=== PATIENT | male | born 1960 | race Caucasian/White ===

== ENCOUNTER 2017-09-17 01:50 | Emergency (ER) | payer SELFPAY ==
[2017-09-17] MEDS ORDERED: Acetaminophen 500 MG Tab PO ONE (02:30)
--- NOTE | 2017-09-17 02:39 | EDM.PDOC ---
ED HPI GENERAL MEDICAL PROBLEM - General Chief Complaint: Lower Extremity Injury/Pain Stated Complaint: KNEE PAIN Time Seen by Provider: 09/17/17 02:20 Source of Information: Reports: Patient, RN History Limitations: Reports: No Limitations - History of Present Illness INITIAL COMMENTS - FREE TEXT/NARRATIVE: 57 yo male presents with anterior knee pain. States he pulled a metal wire out of his anterior L knee about 1430 h on 09/16/17. 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 His last tetanus was reportedly 7 yrs ago. Presents now at 0210h to make sure the knee is OK. He does not need a note for work. Would like something for pain. 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: Other (see below) (none) Bilateral Knee Pain Score (Numeric/FACES): 5 - Related Data Allergies Allergy/AdvReac Type Severity Reaction Status Date / Time No Known Allergies Allergy Verified 09/17/17 02:03 Home Meds: Home Meds Lisinopril [Prinivil] 10 mg PO DAILY 09/17/17 [History] Paliperidone [Invega] 9 mg PO DAILY 09/17/17 [History] Propranolol [Inderal] 10 mg PO DAILY 09/17/17 [History] Past Medical History Cardiovascular History: Reports: Hypertension Respiratory History: Reports: Asthma Musculoskeletal History: Reports: Fracture - Infectious Disease History Infectious Disease History: Reports: Chicken Pox - Past Surgical History HEENT Surgical History: Reports: Other (See Below) Other HEENT Surgeries/Procedures: left ear surgery Social & Family History - Tobacco Use Smoking Status *Q: Current Every Day Smoker Years of Tobacco use: 6 Packs/Tins Daily: 1 Used Tobacco, but Quit: Yes Month/Year Tobacco Last Used: nov Second Hand Smoke Exposure: No - Caffeine Use Caffeine Use: Reports: Coffee - Alcohol Use Days Per Week of Alcohol Use: 1 Number of Drinks Per Day: 2 Total Drinks Per Week: 2 - Recreational Drug Use Recreational Drug Use: No Review of Systems - Review of Systems Review Of Systems: See Below Musculoskeletal: Reports: Other (L anterior knee pain) Skin: Reports: Erythema (small area L anterior knee.) Neurological: Reports: No Symptoms ED EXAM, GENERAL - Physical Exam Exam: See Below Exam Limited By: No Limitations General Appearance: Alert, WD/WN, No Apparent Distress Extremities: Normal Inspection, Normal Range of Motion, Non-Tender, No Pedal Edema Neurological: Alert, CN II-XII Intact, Normal Gait, No Motor/Sensory Deficits Skin Exam: Warm, Dry, Intact, No Rash, Erythema (Very small, ~ 1/8 inch area of redness to the anterior L knee. No fluctuance. No increased warmth. ) Course - Vital Signs Last Recorded V/S: Last Vital Signs Temp 35 C L 09/17/17 02:13 Pulse 80 09/17/17 02:13 Resp 16 09/17/17 02:13 BP 137/74 09/17/17 02:13 Pulse Ox 99 09/17/17 02:13 - Orders/Labs/Meds Meds: Medications Discontinued Medications Generic Name Dose Route Start Last Admin Trade Name Amy PRN Reason Stop Dose Admin Acetaminophen 1,000 mg 09/17/17 02:30 Tylenol Extra Strength PO 09/17/17 02:31 ONETIME ONE Departure - Departure Time of Disposition: 02:40 Disposition: Home, Self-Care 01 Condition: Good Clinical Impression: Puncture wound of knee, left Qualifiers: Encounter type: initial encounter Qualified Code(s): S81.032A - Puncture wound without foreign body, left knee, initial encounter - Discharge Information Referrals: PCP,None [Primary Care Provider] - Forms: ED Department Discharge Additional Instructions: Keep your anterior knee clean with soap and water. Recheck in the clinic if redness worsens. Acetaminophen per package instructions for pain releif.
== END 2017-09-17 02:43 | disposition home or self-care (01) ==
LOC: JP.ED 01:50
DX: S81.032A Puncture wound without foreign body, left knee, initial encounter (principal); I10 Essential (primary) hypertension; F17.210 Nicotine dependence, cigarettes, uncomplicated; W26.8XXA Contact with other sharp object(s), not elsewhere classified, initial encounter
CPT/HCPCS: 99283; A9270

== ENCOUNTER 2022-05-02 08:38 | Emergency (ER) | payer SELFPAY ==
[2022-05-02 09:39] LABS: CORONAVIRUS COVID-19 NAA NEGATIVE (NEGATIVE)
== END 2022-05-02 10:20 | disposition home or self-care (01) ==
LOC: JP.ED 08:38
DX: J21.9 Acute bronchiolitis, unspecified (principal); I10 Essential (primary) hypertension; F17.210 Nicotine dependence, cigarettes, uncomplicated; Z20.822 Contact with and (suspected) exposure to COVID-19
CPT/HCPCS: 0241U; 99284

== ENCOUNTER 2022-05-06 21:07 | Emergency (ER) | payer SELFPAY | END 2022-05-06 22:33 | disposition home or self-care (01) | LOC: JP.ED 21:07 | DX: J40 Bronchitis, not specified as acute or chronic (principal); I10 Essential (primary) hypertension; F17.210 Nicotine dependence, cigarettes, uncomplicated | CPT/HCPCS: 99283 ==

== ENCOUNTER 2022-05-08 01:17 | Emergency (ER) | payer SELFPAY | END 2022-05-08 02:25 | disposition home or self-care (01) | LOC: JP.ED 01:17 | DX: T69.022A Immersion foot, left foot, initial encounter (principal); T69.021A Immersion foot, right foot, initial encounter; I10 Essential (primary) hypertension; F17.210 Nicotine dependence, cigarettes, uncomplicated | CPT/HCPCS: 99283 ==